=== PATIENT | female | born 1950 | race Caucasian/White ===

== ENCOUNTER 2020-04-05 12:48 | Outpatient (CLI) | payer MEDICARE, OTHER | END 2020-04-05 23:59 | disposition home or self-care (01) | LOC: CFH 12:48 | PROVIDERS: ATTEND Nurse Practitioner Family | DX: N60.02 Solitary cyst of left breast (principal); M81.0 Age-related osteoporosis without current pathological fracture | CPT/HCPCS: 76642; 77066; 77080; G0279 ==